=== PATIENT | male | born 1975 | race Caucasian/White ===

== ENCOUNTER → 2021-01-03 | Outpatient (CLI) | payer BC, OTHER ==
[~2021-01-03] MED LIST: AUGMENTIN 875-1 EACH PO; CLEOCIN HCL300 MG PO; FLEXERIL 10 MG10 MG PO; IBUPROFEN600 MG PO; PREDNISONE 50 M50 MG PO; VOLTAREN GEL 1% TOP
[2021-01-04 08:18] LABS: BUN/CREATININE RATIO 15 (0-10)
== END ==
LOC: EMI 09:00 → MRI 09:00
PROVIDERS: Physician Assistant
DX: R51.9 Headache, unspecified (principal); I10 Essential (primary) hypertension
CPT/HCPCS: 36415; 70553; 80048; 82565; A9577